=== PATIENT | female | born 2000 | race Caucasian/White ===

== ENCOUNTER 2022-04-03 18:13 | Emergency (ER) | payer BC ==
[2022-04-03 18:39] LABS: HEMOGLOBIN 14.1 gm/dl (12.3-15.3); RED BLOOD COUNT 4.84 M/UL (4.00-5.10)
[2022-04-03 19:05] LABS: BUN/CREATININE RATIO 12 (0-10)
[2022-04-03] MEDS ORDERED: PRENATAL VITAM1 EAC6 PO (23:23)
== END 2022-04-03 22:35 | disposition home or self-care (01) ==
LOC: ER1 18:13
DX: O20.9 Hemorrhage in early pregnancy, unspecified (principal); Z3A.01 Less than 8 weeks gestation of pregnancy
CPT/HCPCS: 76817; 80053; 81001; 82550; 82553; 84484; 84702; 84703; 85025; 86900; 86901; 93005; 99284